=== PATIENT | male | born 1980 | race Caucasian/White ===

== ENCOUNTER 2017-09-28 18:20 | Emergency (ER) | payer MEDICAID ==
[~2017-09-28] VITALS: Ht 177.8 cm; Wt 97.4 kg
[~2017-09-28 18:20] MED LIST: HYDR-565 PO
[2017-09-28] MEDS ORDERED: DOXY100C43 PO (21:41)
[2017-09-28 21:48] VITALS: BP 124/72
== END 2017-09-28 21:50 | disposition home or self-care (01) ==
LOC: ER 18:20
DX: L98.8 Other specified disorders of the skin and subcutaneous tissue (principal); M79.671 Pain in right foot; M79.601 Pain in right arm; M79.602 Pain in left arm; F12.90 Cannabis use, unspecified, uncomplicated; Z60.2 Problems related to living alone; Z59.0 Homelessness; Z56.0 Unemployment, unspecified; Z88.0 Allergy status to penicillin; Z79.899 Other long term (current) drug therapy
CPT/HCPCS: 99283

== ENCOUNTER 2018-05-31 14:42 | Emergency (ER) | payer MEDICAID ==
[~2018-05-31] VITALS: Ht 177.8 cm; Wt 90.0 kg
[~2018-05-31 14:42] MED LIST changes: +HYDR-4353 PO; -HYDR-565 PO
[2018-05-31 15:14] VITALS: BP 131/66
== END 2018-05-31 22:50 | disposition left against medical advice (07) ==
LOC: ER 14:43
DX: R21 Rash and other nonspecific skin eruption (principal); Z53.21 Procedure and treatment not carried out due to patient leaving prior to being seen by health care provider

== ENCOUNTER 2019-05-12 21:48 | Emergency (ER) | payer MEDICAID ==
[~2019-05-12] VITALS: Ht 177.8 cm; Wt 86.3 kg
[2019-05-12 22:32] LABS: CLARITY,URINE CLEAR (Clear); COLOR,URINE YELLOW (Yellow); GLUCOSE, URINE NEGATIVE (Neg); KETONES,URINE NEGATIVE (Neg); LEUKOCYTE ESTERASE ,URINE NEGATIVE (Neg); NITRITES, URINE NEGATIVE (Neg); OCCULT BLOOD,URINE NEGATIVE (Neg); PROTEIN,URINE NEGATIVE (Neg)
[2019-05-12 22:44] LABS: BASOPHILS % (AUTO) 0.5 % (0-1); EOSINOPHILS # (AUTO) 0.3 X10'3 (0-0.9); EOSINOPHILS % (AUTO) 3.2 % (0-6); HEMATOCRIT 42.8 % (42.0-52.0); HEMOGLOBIN 14.7 g/dl (14.0-17.9); LYMPHOCYTES # (AUTO) 1.7 X10'3 (1.1-4.8); LYMPHOCYTES % (AUTO) 19.4 % (21-51); MEAN CORPUSCULAR HGB CONC 34.5 g/dL (33.0-36.5); MEAN CORPUSCULAR VOLUME 89.9 FL (78-98); MEAN PLATELET VOLUME 8.3 FL (7.4-10.4); MONOCYTES # (AUTO) 0.8 X10'3 (0-0.9); MONOCYTES % (AUTO) 8.9 % (2-12); NEUTROPHILS # (AUTO) 6.1 X10'3 (1.8-7.7); PLATELET COUNT 330 X10'3 (140-440); RED BLOOD COUNT 4.76 X10'6 (4.70-6.10); RED CELL DISTRIBUTION WIDTH 12.8 % (11.5-14.5)
[2019-05-12 23:00] LABS: ALANINE AMINOTRANSFERASE 51 U/L (12-78); ALBUMIN 3.5 G/DL (3.4-5.0); ALBUMIN/GLOBULIN RATIO 0.9 (1.1-1.5); ALKALINE PHOSPHATASE 86 IU/L (46-116); ANION GAP 7 (8-16); ASPARTATE AMINO TRANSFERASE 33 U/L (10-37); BILIRUBIN,TOTAL 0.4 MG/DL (0.1-1.0); BLOOD UREA NITROGEN 14 MG/DL (7-18); BUN/CREATININE RATIO 17.7 (5.4-32.0); CALCIUM 9.3 MG/DL (8.5-10.1); CHLORIDE 102 MMOL/L (99-107); CREATININE 0.79 MG/DL (0.60-1.10); GLUCOSE 121 MG/DL (70-104); LIPASE 111 U/L (73-393); POTASSIUM 3.5 MMOL/L (3.5-5.1); SODIUM 137 MMOL/L (135-145); TOTAL CARBON DIOXIDE 27.9 MMOL/L (24-32); TOTAL PROTEIN 7.2 G/DL (6.4-8.2); eGFR > 90 ML/MIN
[2019-05-12 23:08] LABS: UA COLLECTION TYPE CLN CATCH MIDSTREAM
[2019-05-12] MEDS ORDERED: famotidine 20mg tablet PO ONE (23:15)
[2019-05-12] MEDS ORDERED: mag hydrox/Alum hydrox/simeth 30ml oral suspension PO ONE (23:15)
[2019-05-12] MEDS ORDERED: MAG355OR18 PO (23:31)
[2019-05-12] MEDS ORDERED: FAMO-128 PO (23:31)
[2019-05-12 23:46] VITALS: BP 126/80
== END 2019-05-12 23:49 | disposition home or self-care (01) ==
LOC: ER 21:49
DX: R10.12 Left upper quadrant pain (principal); R09.81 Nasal congestion; M54.6 Pain in thoracic spine; R11.10 Vomiting, unspecified; F12.90 Cannabis use, unspecified, uncomplicated; Z60.2 Problems related to living alone; Z59.0 Homelessness; Z56.0 Unemployment, unspecified; Z88.0 Allergy status to penicillin; Z79.899 Other long term (current) drug therapy
CPT/HCPCS: 36415; 71045; 80053; 81003; 83690; 85025; 99284

== ENCOUNTER 2023-04-12 00:36 | Emergency (ER) | payer MEDICAID ==
[~2023-04-12] VITALS: Ht 177.8 cm; Wt 114.0 kg
[~2023-04-12 00:36] MED LIST changes: +FAMO-128 PO
[2023-04-12 01:06] VITALS: TEMP 98.5
[2023-04-12] MEDS ORDERED: CEPH250T PO (03:21)
[2023-04-12 03:43] VITALS: BP 144/85; PULSE 89; RESP 16; O2SAT 100
== END 2023-04-12 03:49 | disposition home or self-care (01) ==
LOC: ER 00:36
DX: L03.116 Cellulitis of left lower limb (principal); Z88.0 Allergy status to penicillin; Z79.2 Long term (current) use of antibiotics; Z79.899 Other long term (current) drug therapy
CPT/HCPCS: 99283